=== PATIENT | female | born 1980 | race Caucasian/White ===

== ENCOUNTER 2017-01-25 09:44 | Emergency (ER) | payer MEDICAID ==
[~2017-01-25] VITALS: Ht 175.3 cm; Wt 67.0 kg
[~2017-01-25 09:44] MED LIST: IBUP-232 PO
[2017-01-25 09:46] VITALS: BP 113/82; PULSE 100; RESP 18; TEMP 98.4; O2SAT 97
[2017-01-25] MEDS ORDERED: IBUPROFEN 600 MG TAB PO ONE (10:00)
--- NOTE | 2017-01-25 10:21 | RADHPO ---
EXAM DATE/TIME: 01/25/2017 09:59 [facility] COMPARISON: No previous studies available for comparison. INDICATIONS : Fell, has left ankle pain MEDICAL HISTORY : None. SURGICAL HISTORY : None. ENCOUNTER: Initial ACUITY: 1 day PAIN SCORE: 6/10 LOCATION: Left ankle FINDINGS: Three view exam was performed of the left ankle. The bony structures are in normal alignment. No ev idence of fracture, dislocation, or soft tissue swelling. The ankle mortise is intact. No radiopaqu e foreign bodies are seen. Bony mineralization is normal. CONCLUSION: Negative for fracture or dislocation. Follow up in 7-10 days is suggested if symptoms persist. Yves Horta MD FACR on January 25, 2017 at 10:19 Board Certified Radiologist. This report was verified electronically.
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
--- NOTE | 2017-01-25 10:22 | RADHPO ---
EXAM DATE/TIME: 01/25/2017 10:04 [facility] COMPARISON: No previous studies available for comparison. INDICATIONS : Fell, has right ankle pain MEDICAL HISTORY : None. SURGICAL HISTORY : None. ENCOUNTER: Initial ACUITY: 1 day PAIN SCORE: 6/10 LOCATION: Right ankle FINDINGS: There is soft-tissue swelling over the lateral malleolus. Medial malleolus is intact. Alignment is anatomic. A fracture is not appreciated. CONCLUSION: Soft-tissue swelling, negative for fracture. Yves Horta MD FACR on January 25, 2017 at 10:19 Board Certified Radiologist. This report was verified electronically.
[2017-01-25] MEDS ORDERED: NAPR500T PO (10:44)
== END 2017-01-25 11:00 | disposition home or self-care (01) ==
LOC: PHED 09:44
DX: S93.401A Sprain of unspecified ligament of right ankle, initial encounter (principal); S93.402A Sprain of unspecified ligament of left ankle, initial encounter; R00.0 Tachycardia, unspecified; Z98.51 Tubal ligation status; W01.0XXA Fall on same level from slipping, tripping and stumbling without subsequent striking against object, initial encounter; F17.200 Nicotine dependence, unspecified, uncomplicated
CPT/HCPCS: 73610; 99283; E0113